=== PATIENT | male | born 1955 | race Caucasian/White ===

== ENCOUNTER 2021-10-07 08:53 | Outpatient (CLI) | payer MEDICARE, BC, SELFPAY ==
[2021-10-07 19:18] LABS: Albumin* 4.5 g/dL (3.3-5.0)
[2021-10-07 19:19] LABS: Chloride* 110 mmol/L (96-114); Potassium* 4.5 mmol/L (3.6-5.1); Sodium* 141 mmol/L (135-149)
[2021-10-07 19:21] LABS: Bilirubin Total* 0.4 mg/dL (0.1-1.5); Carbon Dioxide* 21 mmol/L (20-32); Cholesterol* 223 mg/dL (90-199); Creatinine* 0.9 mg/dL (0.5-1.5); Estimated Glomerular Filt Rate 94.19
[2021-10-07 19:22] LABS: Alanine Aminotransferase* 37 U/L (4-50); Alkaline Phosphatase* 72 U/L (40-150); Aspartate Amino Transferase* 35 U/L (12-35); Blood Urea Nitrogen* 18 mg/dL (7-30); Calcium* 9.7 mg/dL (8.4-10.6); Glucose* 93 mg/dL (60-115); HDL Cholesterol* 38 mg/dL (>=40); LDL Cholesterol Calculated 163 mg/dL (<100); Triglycerides* 111 mg/dL (40-149)
[2021-10-07 19:51] LABS: PSA Screen* 2.28 ng/mL (0.10-4.00)
== END 2021-10-07 08:54 | disposition home or self-care (01) ==
PROVIDERS: PCP Family Medicine; Visit Provider Family Medicine
DX: I10 Essential (primary) hypertension (principal); E78.5 Hyperlipidemia, unspecified; R00.2 Palpitations; K42.9 Umbilical hernia without obstruction or gangrene; Z12.5 Encounter for screening for malignant neoplasm of prostate
CPT/HCPCS: 80053; 80061; 84153; 84443